=== PATIENT | male | born 1965 | race Caucasian/White ===

== ENCOUNTER 2017-09-05 21:15 | Emergency (ER) | payer OTHER ==
[~2017-09-05] VITALS: Ht 177.8 cm; Wt 99.8 kg
[2017-09-05 21:15] VITALS: Ht 177.8 cm; Wt 99.8 kg
[2017-09-05 22:48] VITALS: BP 151/93
== END 2017-09-05 23:20 | disposition left against medical advice (07) ==
LOC: ED 21:15
DX: I46.2 Cardiac arrest due to underlying cardiac condition (principal); E11.9 Type 2 diabetes mellitus without complications; B19.20 Unspecified viral hepatitis C without hepatic coma; I25.2 Old myocardial infarction; Z66 Do not resuscitate
CPT/HCPCS: 83880; G0480; Q0092